=== PATIENT | male | born 1995 | race Caucasian/White ===

== ENCOUNTER 2017-10-19 08:14 | Emergency (ER) | payer OTHER ==
[~2017-10-19] VITALS: Ht 172.7 cm; Wt 78.9 kg
[~2017-10-19 08:14] MED LIST: AUGMENTIN 875-1 EACH PO
[2017-10-19 08:17] VITALS: BP 148/89
--- NOTE | 2017-10-19 08:24 | ED GI/GU/ABDOMINAL COMPLAINT ---
History of Present Illness General Chief Complaint: Male Genitourinary Problems Stated Complaint: "IM HAVING DISCOMFORT WHERE I SHOULDNT BE " Source: patient Exam Limitations: no limitations Vital Signs & Intake/Output Vital Signs & Intake/Output Vital Signs Date Time Temp Pulse Resp B/P B/P Pulse O2 O2 Flow FiO2 Mean Ox Delivery Rate 10/19 0820 98 Room Air 10/19 0817 98.6 53 18 148/89 98 Room Air Allergies Coded Allergies: NO KNOWN ALLERGIES (05/10/16) Reconcile Medications Amoxicillin/Potassium Clav (Augmentin 875-125 Tablet) 1 EACH TABLET 1 TAB PO BID ruptured ear drum/infection Triage Note: 22 YO MALE TO ER C/O BURNING WITH URINATION AND PAIN TO HEAD OF PENIS. Triage Nurses Notes Reviewed? yes Duration: day(s):, continues in ED, getting worse, intermittent Quality/Severity: burning, severe Location: PENIS Sexually Active: Yes Last Time You Were Sexual: less than 2 months ago Use of Protection: No HPI: Patient presents for evaluation of a burning sensation with urination after engaging in unprotected sex. Patient denies fever, cold symptoms or genital lesions. She likewise denies any swollen glands or discharge. He states he has had chlamydia in the past and had very similar symptoms. Past History Travel History Traveled to [place] past 21 day No Medical History Any Pertinent Medical History? see below for history Neurological: NONE EENT: otitis media Cardiovascular: NONE Respiratory: NONE Gastrointestinal: NONE Hepatic: NONE Renal: NONE Musculoskeletal: NONE Psychiatric: NONE Endocrine: NONE Blood Disorders: NONE Cancer(s): NONE MOLDING PRESS OPERATOR/Reproductive: NONE Surgical History Surgical History: none Psychosocial History What is your primary language Estonian Tobacco Use: Never used Family History Hx Contributory? No Review of Systems Review of Systems Constitutional: Reports: no symptoms. EENTM: Reports: no symptoms. Respiratory: Reports: no symptoms. Cardiovascular: Reports: no symptoms. GI: Reports: no symptoms. Genitourinary: Reports: see HPI. Musculoskeletal: Reports: no symptoms. Skin: Reports: no symptoms. Neurological/Psychological: Reports: no symptoms. Hematologic/Endocrine: Reports: no symptoms. Immunologic/Allergic: Reports: no symptoms. All Other Systems: Reviewed and Negative Physical Exam Physical Exam Gastrointestinal: SEE BELOW Comments: Gen.: Well-nourished, well-developed, no acute respiratory distress. Head: Normocephalic, atraumatic. Eyes: Normal inspection bilaterally Ears: Normal inspection bilaterally Nose: Normal inspection Throat/mouth : Moist mucosa Neck: Supple, full range of motion, no goiter Lungs: Quiet respirations Back: Normal range of motion Extremities: Normal range of motion grossly, no cyanosis clubbing or edema of the upper extremities Neurologic: Cranial nerves grossly intact, speech is clear Skin: warm and dry Psychiatric: Calm, cooperative, no apparent delusions or hallucinations : Normal external anatomy with no apparent lesions or penile discharge. No inguinal lymphadenopathy present. Core Measures ACS in differential dx? No Sepsis Present: No Sepsis Focused Exam Completed? No Progress Differential Diagnosis: STD, urethritis, UTI/pyelo Plan of Care: Orders Procedure Date/time Status CHLAMYDIA-GC DNA PROBE 10/19 822 Active Current Medications Sig/Khoa Start time Last Medication Dose Stop Time Status Admin Azithromycin 1,000 MG ONCE ONE 10/19 830 UNVr (Zithromax) 10/19 831 Ceftriaxone Sodium 250 MG ONCE ONE 10/19 830 UNir (Rocephin) 10/19 831 Microbiology 10/19 822 URINE ROUT: GC DNA Probe - ORD 10/19 822 URINE ROUT: Chlamydia DNA Probe (DANIELLE) - ORD Initial ED EKG: none Departure Departure Disposition: HOME OR SELF CARE Condition: Stable Clinical Impression Primary Impression: STD (male) Referrals: Latanya YE,Agustin Shipley (PCP/Family) Additional Instructions: Notify any intimate partners of your symptoms and treatment. Return if any concerns or sudden worsening. Departure Forms: Customer Survey General Discharge Information
== END 2017-10-19 08:50 ==
LOC: ERH 08:14
DX: A64 Unspecified sexually transmitted disease (principal)
CPT/HCPCS: 87491; 87591; 96372; J0696